=== PATIENT | female | born 1975 | race African-American/Black ===

== ENCOUNTER 2016-12-27 09:39 | Emergency (ER) | payer SELFPAY ==
[2016-12-27 10:33] LABS: BASOPHILS 0.7 %; BASOPHILS ABSOLUTE 0.04 10/3/uL (0.0-0.16); EOSINOPHILS ABSOLUTE 0.12 10/3/uL (0.0-0.53); HEMOGLOBIN 9.7 g/dL (12.0-16.0); LYMPHOCYTES 44.6 %; LYMPHOCYTES ABSOLUTE 2.67 10/3/uL (0.67-4.30); MEAN CORPUS HGB CONC 28.9 g/dL (32.0-36.0); MEAN CORPUSCULAR HEMOGLOB 18.5 pg (26.0-34.0); MEAN PLATELET VOLUME 8.9 fL (9.2-13.0); MONOCYTES ABSOLUTE 0.54 10/3/uL (0.21-1.20); NEUTROPHILS 43.7 %; NEUTROPHILS ABSOLUTE 2.62 10/3/uL (2.02-8.40); PLATELET COUNT 282 10/3/uL (150-400); RBC DISTRIBUTION WIDTH 18.1 % (12.0-16.0); RED CELL COUNT 5.24 10/6/uL (4.0-5.6)
[2016-12-27 10:34] LABS: HEMATOCRIT 33.6 % (36.0-48.0); MANUAL DIFF NO %; MEAN CORPUSCULAR VOLUME 64.1 fL (80-100)
[2016-12-27 10:48] LABS: BUN (BLOOD UREA NITROGEN) 8 MG/DL (6-23); CALCIUM, SERUM 8.9 MG/DL (8.5-10.4); CHLORIDE, SERUM 106 MMOL/L (96-112); CO2 (CARBON DIOXIDE) 32 MMOL/L (24-34); CREATININE 0.79 MG/DL (0.55-1.02); GFR AFRICAN AMERICAN 108 ML/MIN (>=60); GFR NON AFRICAN AMERICAN 93 ML/MIN (>=60); GLUCOSE, SERUM 96 MG/DL (60-99); SODIUM, SERUM 141 MMOL/L (135-148)
[2016-12-27 11:00] LABS: ANISOCYTOSIS 1+ (5-10/OIF) (0-5/OIF); HYPOCHROMIA 1+ (3-10/OIF) (0-2/OIF); MICROCYTES 4+ (>50/OIF) (0-5/OIF); PLATELET ESTIMATE ADQ (ADEQUATE); POLYCHROMASIA 1+ (2-5/OIF) (0-1/OIF)
== END 2016-12-27 11:08 | disposition home or self-care (01) ==
LOC: ER 09:39
PROVIDERS: Nurse Practitioner Acute Care
DX: M79.89 Other specified soft tissue disorders (principal)
CPT/HCPCS: 73130-RT; 80048; 85025; 99284; A9270-GY